=== PATIENT | female | born 1985 | race American Indian/Alaskan Native ===

== ENCOUNTER 2018-01-08 20:07 | Emergency (ER) | payer MEDICAID ==
[2018-01-08] MEDS ORDERED: Sodium Chloride 0.9% 1,000 ML IV ONE (20:26)
[2018-01-08] MEDS ORDERED: Butorphanol 2 MG/ML SDV IVPUSH ONE (20:26)
[2018-01-08] MEDS ORDERED: Ondansetron 4 MG/2 ML SDV IV ONE (20:26)
--- NOTE | 2018-01-08 20:29 | EDM.PDOC ---
ED HPI GENERAL MEDICAL PROBLEM - General Chief Complaint: Headache Stated Complaint: [id number] MIGRAINE Time Seen by Provider: 01/08/18 20:26 Source of Information: Reports: Patient History Limitations: Reports: No Limitations - History of Present Illness INITIAL COMMENTS - FREE TEXT/NARRATIVE: gives prior h/o migraines present onset past week tried usual OTC Rx without help. prior incident got IV fluids with stadol & zofran Headache Pain Score (Numeric/FACES): 6 - Related Data Allergies Allergy/AdvReac Type Severity Reaction Status Date / Time No Known Allergies Allergy Verified 01/08/18 20:31 Home Meds: Home Meds FLUoxetine HCl [Prozac] 60 mg PO DAILY 01/08/18 [History] busPIRone [Buspar] 15 mg PO TID 01/08/18 [History] ED ROS GENERAL - Review of Systems Review Of Systems: ROS reveals no pertinent complaints other than HPI. - Physical Exam Exam: See Below Exam Limited By: No Limitations General Appearance: Alert, WD/WN, Mild Distress, Other (discomfort) Eye Exam: Bilateral Eye: PERRL Ears: Hearing Grossly Normal Throat/Mouth: Normal Voice, No Airway Compromise Head Exam: Atraumatic Neck: Non-Tender, Full Range of Motion Respiratory/Chest: No Respiratory Distress Cardiovascular: Regular Rate, Rhythm GI/Abdominal: Soft, Non-Tender Neuro Exam (Abbreviated): Alert, Oriented, Normal Cognition, Normal Gait, No Motor/Sensory Deficits Psychiatric: Tearful Skin Exam: Warm, Dry, Normal Color Course - Vital Signs Last Recorded V/S: Last Vital Signs Temp 36.8 C 01/08/18 20:23 Pulse 103 H 01/08/18 20:23 Resp 16 01/08/18 20:23 BP 112/69 01/08/18 21:17 Pulse Ox 99 01/08/18 20:23 - Orders/Labs/Meds Meds: Medications Discontinued Medications Generic Name Dose Route Start Last Admin Trade Name Freq PRN Reason Stop Dose Admin Butorphanol Tartrate 2 mg 01/08/18 20:26 01/08/18 20:46 Stadol IVPUSH 01/08/18 20:27 2 mg ONETIME ONE Administration Sodium Chloride 1,000 mls @ 999 mls/hr 01/08/18 20:26 01/08/18 20:41 Normal Saline IV 01/08/18 21:26 999 mls/hr .BOLUS ONE Administration Ketorolac Tromethamine 15 mg 01/08/18 21:18 01/08/18 21:21 Toradol IVPUSH 01/08/18 21:19 15 mg ONETIME ONE Administration Ondansetron HCl 4 mg 01/08/18 20:26 01/08/18 20:43 Zofran IV 01/08/18 20:27 4 mg ONETIME ONE Administration - Re-Assessments/Exams Free Text/Narrative Re-Assessment/Exam: 01/08/18 21:33 re-exam; s/p IV fluid + Rx = much better Departure - Departure Time of Disposition: 21:45 Disposition: Home, Self-Care 01 Condition: Good Clinical Impression: Migraine - Discharge Information Instructions: Migraine Headache, [id number] Referrals: PCP,None [Primary Care Provider] - Forms: ED Department Discharge Additional Instructions: 1) rest 2) follow up at clinic 3) recheck as needed
[2018-01-08] MEDS ORDERED: Ketorolac 30 MG/ML SDV IVPUSH ONE (21:18)
== END 2018-01-08 21:48 | disposition home or self-care (01) ==
LOC: DL.ED 20:07
DX: G43.909 Migraine, unspecified, not intractable, without status migrainosus (principal); Z79.899 Other long term (current) drug therapy
CPT/HCPCS: 96365; 96375; 99283; J0595; J1885; J2405; J7030

== ENCOUNTER 2018-03-06 14:29 | Emergency (ER) | payer MEDICAID ==
[2018-03-06] MEDS ORDERED: Sodium Chloride 0.9% 1,000 ML IV ONE (14:46)
[2018-03-06] MEDS ORDERED: Ondansetron 4 MG/2 ML SDV IV ONE (14:46)
[2018-03-06] MEDS ORDERED: Sodium Chloride 0.9% 10 ML Syringe FLUSH PRN (14:46)
[2018-03-06] MEDS ORDERED: Butorphanol 2 MG/ML SDV IVPUSH ONE (14:46)
--- NOTE | 2018-03-06 16:27 | EDM.PDOC ---
Scribed by Kayli Dash 03/06/18 1537 for Smitha Jefferson NP ED HPI GENERAL MEDICAL PROBLEM - General Chief Complaint: Headache Stated Complaint: MIGRAINE [id number] Time Seen by Provider: 03/06/18 14:40 Source of Information: Reports: Patient, RN, RN Notes Reviewed History Limitations: Reports: No Limitations - History of Present Illness INITIAL COMMENTS - FREE TEXT/NARRATIVE: Patient presents to ER with complaint of migraine headache that began 4 hours ago. It is behind the right eye, vision has floaters, and photosensitivity. She was here 1 month ago for migraine and followed up and got Imitrex, but cannot find it. She has no nausea, vomiting,diarrhea, fever or chills. She rates her headache a 12/29. Patient states Depo shot and tubes being tied in March. States no chance of . Onset: Today Duration: Getting Worse Location: Reports: Head Quality: Reports: Ache Severity: Moderate Improves with: Reports: None Worsens with: Reports: None Associated Symptoms: Reports: No Other Symptoms - Related Data Allergies Allergy/AdvReac Type Severity Reaction Status Date / Time No Known Allergies Allergy Verified 03/06/18 14:32 Home Meds: Home Meds FLUoxetine HCl [Prozac] 60 mg PO DAILY 01/08/18 [History] busPIRone [Buspar] 15 mg PO TID 01/08/18 [History] Past Medical History - Past Health History Medical/Surgical History: Denies Medical/Surgical History HEENT History: Reports: Impaired Vision [employer] History: Reports: Neurological History: Reports: Migraines Psychiatric History: Reports: Anxiety, Depression Social & Family History - Family History Family Medical History: Noncontributory - Caffeine Use Caffeine Use: Reports: None ED ROS GENERAL - Review of Systems Review Of Systems: ROS reveals no pertinent complaints other than HPI. - Physical Exam Exam: See Below Exam Limited By: No Limitations General Appearance: Alert, WD/WN, No Apparent Distress Eye Exam: Bilateral Eye: EOMI, Normal Inspection, PERRL Ears: Normal External Exam, Normal Canal, Hearing Grossly Normal, Normal TMs Nose: Normal Inspection, Normal Mucosa, No Blood Throat/Mouth: Normal Inspection, Normal Lips, Normal Teeth, Normal Gums, Normal Oropharynx, Normal Voice, No Airway Compromise Head Exam: Atraumatic, Normocephalic Neck: Normal Inspection, Supple, Non-Tender, Full Range of Motion Respiratory/Chest: No Respiratory Distress, Lungs Clear, Normal Breath Sounds, No Accessory Muscle Use, Chest Non-Tender Cardiovascular: Normal Peripheral Pulses, Regular Rate, Rhythm, No Edema, No Gallop, No JVD, No Murmur, No Rub GI/Abdominal: Normal Bowel Sounds, Soft, Non-Tender, No Organomegaly, No Distention, No Abnormal Bruit, No Mass (Female) Exam: Deferred Rectal (Female) Exam: Deferred Neuro Exam (Abbreviated): Alert, Oriented, CN II-XII Intact, Normal Cognition, Normal Gait, Normal Reflexes, No Motor/Sensory Deficits Back Exam: Normal Inspection, Full Range of Motion, NT Extremities: Normal Inspection, Normal Range of Motion, Non-Tender, No Pedal Edema, Normal Capillary Refill Psychiatric: Normal Affect, Normal Mood Skin Exam: Warm, Dry, Intact, Normal Color, No Rash Course - Vital Signs Last Recorded V/S: Last Vital Signs Temp 98.5 F 03/06/18 14:37 Pulse 100 03/06/18 14:37 Resp 18 03/06/18 14:37 BP 127/75 03/06/18 14:37 Pulse Ox 97 03/06/18 14:37 - Orders/Labs/Meds Orders: Active Orders 24 hr Category Date Time Status Peripheral IV Care [RC] . DIRECTED Care 03/06/18 14:46 Active Peripheral IV Insertion Adult [OM.PC] Stat Oth 03/06/18 14:46 Ordered Meds: Medications Discontinued Medications Generic Name Dose Route Start Last Admin Trade Name Freq PRN Reason Stop Dose Admin Butorphanol Tartrate 2 mg 03/06/18 14:46 03/06/18 15:00 Stadol IVPUSH 03/06/18 14:47 2 mg ONETIME ONE Administration Sodium Chloride 1,000 mls @ 999 mls/hr 03/06/18 14:46 03/06/18 15:00 Normal Saline IV 03/06/18 15:46 999 mls/hr .BOLUS ONE Administration Ondansetron HCl 4 mg 03/06/18 14:46 03/06/18 15:00 Zofran IV 03/06/18 14:47 4 mg ONETIME ONE Administration Sodium Chloride 10 ml 03/06/18 14:46 03/06/18 15:00 Saline Flush FLUSH 10 ml ASDIRECTED PRN Administration Keep Vein Open Departure - Departure Time of Disposition: 15:44 Disposition: Home, Self-Care 01 Condition: Fair Clinical Impression: Migraine - Discharge Information *PRESCRIPTION DRUG MONITORING PROGRAM REVIEWED*: Yes *COPY OF PRESCRIPTION DRUG MONITORING REPORT IN PATIENT LEILANI: No Instructions: Migraine Headache, [id number] Forms: ED Department Discharge Additional Instructions: Drink plenty of fluids Follow up with your primary care facility - My Orders Last 24 Hours: My Active Orders 03/06/18 14:46 Peripheral IV Care [RC] . DIRECTED Peripheral IV Insertion Adult [OM.PC] Stat - Assessment/Plan Last 24 Hours: My Active Orders 03/06/18 14:46 Peripheral IV Care [RC] . DIRECTED Peripheral IV Insertion Adult [OM.PC] Stat I have read and agree with the documentation that has been completed regarding this visit. By signing this record, I attest that the documentation was completed in my physical presence and is an accurate record of the encounter.
== END 2018-03-06 15:46 | disposition home or self-care (01) ==
LOC: DL.ED 14:29
DX: G43.909 Migraine, unspecified, not intractable, without status migrainosus (principal); F41.9 Anxiety disorder, unspecified; F32.9 Major depressive disorder, single episode, unspecified; Z79.899 Other long term (current) drug therapy
CPT/HCPCS: 96361; 96374; 96375; 99283; J0595; J2405; J7030; J7050

== ENCOUNTER 2018-10-03 23:52 | Emergency (ER) | payer MEDICAID ==
[2018-10-04] MEDS ORDERED: traMADol 50 MG Tab PO ONE (00:48)
[2018-10-04] MEDS ORDERED: Clindamycin HCl 150 MG Cap PO ONE (00:48)
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
== END 2018-10-04 00:59 | disposition home or self-care (01) ==
LOC: DL.ED 23:52
DX: L03.114 Cellulitis of left upper limb (principal); F41.9 Anxiety disorder, unspecified; F32.9 Major depressive disorder, single episode, unspecified; F17.210 Nicotine dependence, cigarettes, uncomplicated; E03.9 Hypothyroidism, unspecified; Z79.899 Other long term (current) drug therapy; Z88.6 Allergy status to analgesic agent; Z88.1 Allergy status to other antibiotic agents
CPT/HCPCS: 99282; A9270-GY

== ENCOUNTER 2021-05-03 15:46 | Emergency (ER) | payer MEDICAID | END 2021-05-03 16:13 | disposition left against medical advice (07) | LOC: DL.ED 15:46 | DX: Z53.21 Procedure and treatment not carried out due to patient leaving prior to being seen by health care provider (principal) ==

== ENCOUNTER 2022-06-22 18:14 | Emergency (ER) | payer MEDICAID ==
[2022-06-22] MEDS ORDERED: Acetaminophen/oxyCODONE 325-5 MG Tab PO ONE (18:15)
[2022-06-22] MEDS ORDERED: Acetaminophen/oxyCODONE 325-5 MG Tab ONE (19:51)
== END 2022-06-22 20:03 | disposition home or self-care (01) ==
LOC: DL.ED 18:14
DX: S82.842A Displaced bimalleolar fracture of left lower leg, initial encounter for closed fracture (principal); E03.9 Hypothyroidism, unspecified; F17.210 Nicotine dependence, cigarettes, uncomplicated; X50.1XXA Overexertion from prolonged static or awkward postures, initial encounter
CPT/HCPCS: 73610; 99283; A9270

== ENCOUNTER 2022-06-23 14:57 | Emergency (ER) | payer MEDICAID | END 2022-06-23 15:09 | disposition left against medical advice (07) | LOC: DL.ED 14:57 | DX: Z53.21 Procedure and treatment not carried out due to patient leaving prior to being seen by health care provider (principal) ==

== ENCOUNTER 2022-08-10 23:08 | Emergency (ER) | payer MEDICAID ==
[2022-08-10] MEDS ORDERED: diphenhydrAMINE 25 MG Tab PO ONE (23:09)
[2022-08-10] MEDS ORDERED: Metoclopramide 10 MG Tab PO ONE (23:09)
[2022-08-10] MEDS ORDERED: diphenhydrAMINE 25 MG Tab ONE (23:35)
[2022-08-10] MEDS ORDERED: Metoclopramide 10 MG Tab ONE (23:35)
== END 2022-08-10 23:39 | disposition home or self-care (01) ==
LOC: DL.ED 23:08
DX: G43.909 Migraine, unspecified, not intractable, without status migrainosus (principal)
CPT/HCPCS: 99282; 99283; A9270-GY